=== PATIENT | female | born 1980 | race African-American/Black ===

== ENCOUNTER 2016-10-09 18:19 | Emergency (ER) | payer OTHER ==
[~2016-10-09] VITALS: Ht 160 cm; Wt 64.0 kg
[2016-10-09 18:23] VITALS: BP 104/68; PULSE 80; RESP 16; TEMP 97.3; O2SAT 100
--- NOTE | 2016-10-09 19:44 | RADHPO ---
EXAM DATE/TIME: 10/09/2016 18:37 [place] COMPARISON: No previous studies available for comparison. INDICATIONS : Patient states she fell down the stairs, right ankle pain. MEDICAL HISTORY : None. SURGICAL HISTORY : None. ENCOUNTER: Initial ACUITY: 1 day PAIN SCORE: 5/10 LOCATION: Right Ankle FINDINGS: There is no evidence of fracture or dislocation. Mineralization is normal. No significant articular a bnormality are evident. A tiny plantar heel spur is noted. There is mild soft tissue swelling. CONCLUSION: No acute bony injury Micha Boston MD on October 09, 2016 at 19:43 Board Certified Radiologist. This report was verified electronically.
[2016-10-09] MEDS ORDERED: IBUP-232 PO (21:53)
--- NOTE | 2016-10-09 21:56 | PD ---
HPI Chief Complaint: Injury Time Seen by Provider: 21:50 Travel History International Travel<30 days: No Contact w/Intl Traveler<30days: No Traveled to known affect area: No History of Present Illness HPI 35-year-old female presents to the emergency department for evaluation of right ankle injury that occurred just prior to arrival. Patient states that she tumbled down approximately 2 steps at home. She states she twisted her right ankle. Patient denies hitting her head or losing consciousness. She denies any neck pain or back pain. No chest pain or abdominal pain. No nausea or vomiting. No hip or pelvic pain. She has no chronic medical problems and takes no medications. She denies any chance of . Patient denies any other injury other than her right ankle. PFSH Past Medical History LMP: 2 WEEKS AGO Social History Alcohol Use: No Tobacco Use: No Substance Use: No Allergies-Medications (Allergen,Severity, Reaction): Coded Allergies: Latex (Verified Allergy, Intermediate, RASH, ITCHING, 10/09/16) Review of Systems Except as stated in HPI: all other systems reviewed are Neg Physical Exam Narrative GENERAL: Well-developed well-nourished female patient, ambulatory. Afebrile. SKIN: Warm and dry. HEAD: Normocephalic. Atraumatic. EYES: No scleral icterus. No injection or drainage. NECK: Supple, trachea midline. No JVD or lymphadenopathy. CARDIOVASCULAR: Regular rate and rhythm without murmurs, gallops, or rubs. Right pedal pulse 2+. Capillary refill less than 2 seconds to the digits of the right foot. RESPIRATORY: Breath sounds equal bilaterally. No accessory muscle use. Lungs sounds are clear to auscultation. GASTROINTESTINAL: Abdomen soft, non-tender, nondistended. MUSCULOSKELETAL: No cyanosis, or edema. Patient has mild swelling and tenderness over the right lateral ankle. She has full sensation to the distal right lower extremity. BACK: Nontender without obvious deformity. No CVA tenderness. Data Data Last Documented VS Vital Signs Date Time Temp Pulse Resp B/P Pulse Ox O2 Delivery O2 Flow Rate FiO2 10/09/16 18:23 97.3 80 16 104/68 100 Orders Ankle, Complete ([id number]) (10/09/16 ) Splint Or Brace Apply/Monitor (10/09/16 21:49) Crutches (10/09/16 21:49) Ibuprofen (Motrin) (10/09/16 22:00) MDM Medical Decision Making Medical Screen Exam Complete: Yes Emergency Medical Condition: Yes Medical Record Reviewed: Yes Interpretation(s) Last Impressions Ankle X-Ray 10/09/16 0000 Signed Impressions: Service Date/Time: September 18:37 - CONCLUSION: No acute bony injury Micha Boston MD Differential Diagnosis Sprain versus fracture versus contusion versus dislocation Narrative Course 35-year-old female presents to the emergency department for evaluation of right ankle injury that occurred just prior to arrival. She denies any other injury. X-ray of the right ankle was completed in triage shows no acute bony injury. Patient will be provided Tal bandage and crutches. She is instructed ice and elevate. Patient is given ibuprofen 800 mg by mouth in the emergency department. Patient is instructed to follow-up with orthopedist if pain continues or worsens. She is agreeable to this plan. The patient was discharged in stable condition with instructions, including return instructions and follow up instructions. Diagnosis Primary Impression: Right ankle sprain Qualified Code: S93.401A - Sprain of right ankle, unspecified ligament, initial encounter Referrals: Orthopedist call for appointment Patient Instructions: Ankle Sprain (ED), General Instructions Additional Instructions: Wearing Tal bandage and use crutches as needed for support. Take ibuprofen as directed as needed with food for pain. Ice for 20 minutes 4-5 times daily. Elevate. Follow-up with your primary care physician. Return to the emergency department for any acute worsening of symptoms. Med/Other Pt SpecificInfo: Prescription(s) given Scripts Ibuprofen 600 Mg [id number] Mg PO TID PRN (PAIN SCALE 1 TO 10) #21 TAB Ref 0 Prov:Lizett Garrett 10/09/16 Disposition: 01 DISCHARGE HOME Condition: Stable Lizett Garrett Oct 09, 2016 21:56
[2016-10-09] MEDS ORDERED: IBUPROFEN 800 MG TAB PO ONE (22:00)
[2016-10-09 22:25] VITALS: BP 107/68
== END 2016-10-09 22:26 | disposition home or self-care (01) ==
LOC: PHED 18:19 → PHEFT 22:26
DX: S93.401A Sprain of unspecified ligament of right ankle, initial encounter (principal); X50.1XXA Overexertion from prolonged static or awkward postures, initial encounter; W10.8XXA Fall (on) (from) other stairs and steps, initial encounter; Y99.9 Unspecified external cause status; Y93.9 Activity, unspecified
CPT/HCPCS: 73610; 99283; E0113